=== PATIENT | female | born 1970 | race Two or more races ===

== ENCOUNTER 2016-08-29 23:53 | Emergency (ER) | payer SELFPAY ==
[2016-08-30 00:16] VITALS: RESP 18; TEMP 96.3
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
== END 2016-08-30 00:45 | disposition home or self-care (01) ==
LOC: ER 23:53
DX: S01.01XA Laceration without foreign body of scalp, initial encounter (principal); S00.03XA Contusion of scalp, initial encounter; Y04.2XXA Assault by strike against or bumped into by another person, initial encounter
CPT/HCPCS: 99282

== ENCOUNTER 2018-10-17 08:21 | Inpatient (IN) ==
[2018-10-17] MEDS ORDERED: Sodium Chloride 0.9% 1,000 ML PRIMARY IV ONE ×2 (08:34→11:52)
[2018-10-17] MEDS ORDERED: KETOROLAC 15 MG/1 ML VIAL IVP ONE (08:34)
[2018-10-17] MEDS ORDERED: ONDANSETRON 4 MG/2 ML VIAL IVP ONE (08:34)
[2018-10-17] MEDS ORDERED: ASPIRIN 81 MG (BABY) CHEWABLE TABLET PO ONE (08:37)
[2018-10-17] MEDS ORDERED: NITROGLYCERIN 0.4 MG SL TAB (BOTTLE OF 3) SL ONE (08:37)
--- NOTE | 2018-10-17 08:38 | PDOC ---
Gen Adult / Medical Screen HPI - General Chief Complaint: General Medical Stated Complaint: flu like illness Date Seen by Provider: 10/17/18 Time Seen by Provider: 08:28 Source: POSITIVE: Patient Exam Limitations: POSITIVE: No limitations Nurse's Notes Reviewed & Considered: Yes - History of Present Illness Initial Comments: This is a well-developed, well-nourished, 48-year-old female, complaining of being sick. Patient states she has a headache, sore throat, chest pain that she describes as pressure with no radiation, shortness of breath, mild cough, nausea vomiting and diarrhea, she has myalgias, no hematuria or dysuria, no rashes. She's had subjective fevers with chills and sweats. Patient's symptoms began 2 days ago and have escalated. Body Location Affected: REPORTS: Head, Chest, Abdomen Timing: REPORTS: Constant, Getting Worse Duration: >24 hours (2 days) Similar Symptoms Previously: No Recent Care Received: REPORTS: Denies Any Prior Injuries Related to Current Complaint?: No - Patient Home Medications Home Medications: Home Medications Ibuprofen 600 mg PO Q6H #30 tab 09/02/14 albuterol sulfate HFA 90 mcg/actuation aerosol inhaler 2 puff INH Q4-6H #6.7 g 08/19/17 albuterol sulfate HFA 90 mcg/actuation aerosol inhaler 2 puff INH Q4-6H PRN #1 device 07/28/18 ipratropium-albuterol 0.5 mg-3 mg(2.5 mg base)/3 mL nebulization soln 3 ml INH Q4-6H PRN #90 ml 07/28/18 mometasone-formoterol HFA 200 mcg-5 mcg/actuation aerosol inhaler 2 puff INH BID #13 g 07/28/18 - Patient Allergies Allergies/Adverse Reactions: Allergies Allergy/AdvReac Type Severity Reaction Status Date / Time No Known Drug Allergies Allergy NOT Verified 10/17/18 08:22 APPLICABLE Past Medical History - heen HEENT History: Denies History Cardiovascular History: Denies History Respiratory History: Asthma Gastrointestinal History: GERD Genitourinary History: Denies History Endocrine History: Denies History Musculoskeletal History: Denies History Prosthesis or Implant: No Additional Musculoskeletal History: RIGHT FOOT PAIN Neurological History: Motion Sickness Blood Disorders: Denies History Psychiatric History: Depression History of Sexually Transmitted Diseases: No Cancer History: Denies History History of MDRO: No History of Other Communicable Diseases: No Alcohol Use: None In the Past 12 Months, Have Used or Abuse Any Substance: None Previous Surgical History: Yes Type / Date of Surgery: EGD WITH DILATION GREATER 7 YEARS Anesthesia Reactions: No Malignant Hyperthermia: No Significant Family History: No pertinent family hx ROS - Limitations ROS Limitations: No Limitations Constitution: REPORTS: Chills, Fever, Diaphoresis Cardiovascular: REPORTS: Chest Pain Respiratory: REPORTS: Cough Non Productive, Shortness Of Breath Neurological: REPORTS: Headache Gastrointestinal: REPORTS: Abdominal Pain, Nausea, Vomitting, Diarrhea Endocrine: REPORTS: Fatigue Musculoskeletal: REPORTS: Back Pain, Muscle Aches Genitourinary: REPORTS: Denies Symptoms Eyes: REPORTS: Denies Symptoms ENT: REPORTS: Nasal Drainage, Sore Throat Skin: REPORTS: Denies Skin Symptoms Lympathic: REPORTS: Denies Lympathic Symptoms Immunologic: POSITIVE: Denies Symptoms Psychiatric: POSITIVE: Denies Psych Symptoms Gen Adult/Medical Screen Exam - General Appearance General Appearance: POSITIVE: Alert, Cooperative, No Evidence of Trauma, Moderate Distress - HEENT HEENT: POSITIVE: Head Inspection Nml, Eyes Inspection Nml, Ears Inspection Nml, Nose Inspection Nml, Oral/Dental Inspect. Nml, Pharynx Inspect. Nml, PERRL, EOMI - Pupils Pupil Size: 5 mm: Bilateral - Neck Neck: POSITIVE: Normal Inspection - Respiratory Respiratory: POSITIVE: No Respiratory Distress, Breath Sounds Normal, Chest Non- Tender - Cardiovascular Cardiovascular: POSITIVE: Regular Rate & Rhythm, No Murmur, No Gallop, PMI No rmal Peripheral Pulses: Radial (R): 4+ - Abdomen Abdomen: Soft: (All Quadrants), Normal Bowel Sounds: (All Quadrants), No Splenomegaly: (All Quadrants), No Hepatomegaly: (All Quadrants), No Guarding: (All Quadrants), No Rebound: (All Quadrants), No Palpable Pulse: (All Quadrants), No Palpabale Mass: (All Quadrants), No Rigidity: (All Quadrants), Tenderness Noted: (All Quadrants), Distention: (All Quadrants) - Back Back: POSITIVE: Normal Inspection - Neurological / Psychological Mental Status: POSITIVE: Mood Normal, Affect Normal Orientation: POSITIVE: Oriented x 3 - Skin Skin: POSITIVE: Normal Color, Warm, Dry, No Rash - Extremities Extremity: Non-Tender: (All Extremities), Normal ROM: (All Extremities), Normal Inspection: (All Extremities), Pelvis Stable: (All Extremities) Procedures - Laceration/Wound Repair Did patient have a laceration repair: No Gen Adlt/Medical Scrn Progress - Results Reviewed by me Xrays/CTs/US Reviewed by me: No Discussed with Radiologist: No Lab Results Reviewed by Me: No - Patient's Progress Pain Medication Addressed: POSITIVE: Yes Re-Examine Time: 09:06 Status: POSITIVE: Improved MDM / ED Course: Patient was evaluated, an IV started, blood drawn and sent to the lab for studies, radiologic and EKG studies were also ordered. Patient received a liter of normal saline, Toradol, Zofran. The end of my shift is occurred and I have turned over care to Dr. Micky Kraus. For elucidation of laboratory, radiologic findings, assessment and plan please see his dictation. Patient Care Time - Estimated PCT Patient Care Time (In Minutes): 20 Vital Signs - VS Reviewed Vital Signs Reviewed: Yes Discharge Clinical Impression: Fever, Abdominal pain, Chest pain Condition: Stable Follow Up With: NONE,NONE [Primary Care Provider] -
--- NOTE | 2018-10-17 08:46 | EKG ---
[address] [address] Measurements Intervals [place] Rate: 64 P: 43 MD: 153 QRS: 50 QRSD: 113 T: 67 QT: 409 QTc: 418 Interpretive Statements SINUS RHYTHM MODERATE INTRAVENTRICULAR CONDUCTION DELAY [110+ ms QRS DURATION] No previous ECG available for comparison Electronically Signed On 10-17-18 11:16:14 MST by Leo Leone [email or web address]
[2018-10-17 09:09] LABS: VENOUS PH 7.43 (7.32-7.42)
[2018-10-17 09:29] LABS: BASOPHILS # (AUTO) 0.01 10*3/UL; BASOPHILS % (AUTO) 0.1 % (0-1); EOSINOPHILS # (AUTO) 0.11 10*3/UL; EOSINOPHILS % (AUTO) 1.4 % (0-8); Hematocrit [HCT] 37.5 % (37.0-47.0); LYMPHOCYTES # (AUTO) 0.89 10*3/uL; MEAN CORPUSCULAR HEMOGLOBIN 25.6 PG (27-31); MEAN PLATELET VOLUME 9.2 FL (7.4-12.2); MONOCYTES # (AUTO) 0.38 10*3/UL (0.3-0.8); MONOCYTES % (AUTO) 4.9 % (5-15); NEUTROPHILS # (AUTO) 6.34 10*3/UL; RED BLOOD COUNT 4.69 10^6/uL (4.20-5.40)
[2018-10-17 09:38] LABS: BLOOD UREA NITROGEN 13 mg/dL (7-22); BUN/CREATININE RATIO 18.57 (6-20); LIPASE 64 IU/L (23-300); SERUM ALBUMIN 4.4 g/dL (3.5-4.8)
[2018-10-17 09:43] LABS: PLATELET MORPHOLOGY COMMENT NORMAL MORPHOLOGY (NORM); RBC MORPHOLOGY COMMENT NORMAL MORPHOLOGY (NORM); WBC MORPHOLOGY COMMENT NORMAL MORPHOLOGY (NORM)
[2018-10-17] MEDS ORDERED: Acetaminophen 1000mg Inj 1,000 MG/100 ML VIAL IV PRN (09:51)
[2018-10-17] MEDS ORDERED: FAMOTIDINE 20 MG/2 ML VIAL IVP ONE (09:51)
--- NOTE | 2018-10-17 10:21 | DI ---
AP CHEST X-RAY, 10/17/2018 8:34 AM : Clinical History: Fever. Chest pain. Shortness of breath. Previous Exam: None at this facility. Soft Tissues: No acute soft tissue abnormality. Bones: Normal. Heart: Normal heart. Lungs: No infiltrates. Effusion(s): None. Mediastinum: Normal mediastinum. Nodules: No pulmonary nodules. Additional Findings: The stomach is markedly distended with gas. Gas is also present in the small bow el loops without evidence of an obstruction. Reading: Normal chest x-ray. Marked gaseous distention of the stomach.
--- NOTE | 2018-10-17 10:58 | PDOC ---
Transfer of Care - Care Accepted Time Care Transferred: 09:00 Report from Transferring Physician Received: Yes (Dr. Lainez) MDM / ED Course: The patient is a 48-year-old female who presents to the emergency department with multiple complaints. She was initially evaluated per Dr. Lainez. She reports that sometime yesterday she had onset of nausea and upset stomach. She states that she feels bloated and has been belching. She states that when she belches there is a distinct sulfur smell. She states that she did have some diarrhea as well yesterday and now has mostly just been passing gas. She continues to feel bloated and has some generalized abdominal pain. She also has some pain that radiates up into her chest with some associated chest tightness. She does have fevers and chills as well as general malaise. EKG done shortly after arrival shows normal sinus rhythm with no acute findings. Chest x-ray, chest CT, abdominal CT and labs have been ordered and are pending. The patient denies any prior history of abdominal surgery or history of ulcers. She does have significant heartburn and does take Prilosec routinely. She states that her heartburn has been fairly bad recently. She denies any significant alcohol consumption and denies caffeine consumption. She has not taken any recent [id number] NSAIDs. She is normally healthy. Home Medications: Home Medications Ibuprofen 600 mg PO Q6H #30 tab 09/02/14 albuterol sulfate HFA 90 mcg/actuation aerosol inhaler 2 puff INH Q4-6H #6.7 g 08/19/17 albuterol sulfate HFA 90 mcg/actuation aerosol inhaler 2 puff INH Q4-6H PRN #1 device 07/28/18 ipratropium-albuterol 0.5 mg-3 mg(2.5 mg base)/3 mL nebulization soln 3 ml INH Q4-6H PRN #90 ml 07/28/18 mometasone-formoterol HFA 200 mcg-5 mcg/actuation aerosol inhaler 2 puff INH BID #13 g 07/28/18 Allergies/Adverse Reactions: Allergies No Known Drug Allergies Allergy (Verified 10/17/18 08:22) NOT APPLICABLE Vital Signs Reviewed: Yes Nurse's Notes Reviewed & Considered: Yes - Pending Patient Care Items Pending Patient Care Items: POSITIVE: Labs, X-ray Results, CT / MRI Results - Re-Evaluation of Patient Disposition of Patient: POSITIVE: Admitted Counseled: POSITIVE: Patient, RE: Lab Results, RE: Radiology Results, RE: DX, RE: Need for F/U Pending Test Results Documented: Yes Clinical Impression Documented: Yes - Results Reviewed Lab Results Reviewed by Me: Yes Lab Results: Laboratory Results 10/17/18 10/17/18 10/17/18 08:50 08:55 08:55 WBC 7.74 RBC 4.69 Hgb 12.0 Hct 37.5 MCV 80.0 L MCH 25.6 L MCHC 32.0 L RDW Std Deviation 42.9 RDW Coeff of David 14.9 H Plt Count 475 H MPV 9.2 Immature Gran % (Auto) 0.1 Neut % (Auto) 82.0 H Lymph % (Auto) 11.5 [place] % (Auto) 4.9 L Eos % (Auto) 1.4 Baso % (Auto) 0.1 Immature Gran # (Auto) 0.01 Neut # (Auto) 6.34 Lymph # (Auto) 0.89 [place] # (Auto) 0.38 Eos # (Auto) 0.11 Baso # (Auto) 0.01 WBC Morphology Comment Normal morphology Plt Morphology Comment Normal morphology RBC Morph Comment Normal morphology PT 10.2 INR 1.00 D-Dimer 0.30 VBG pH VBG pCO2 VBG HCO3 VBG Base Excess Sodium Potassium Chloride Carbon Dioxide Anion Gap BUN Creatinine Estimated GFR BUN/Creatinine Ratio Glucose Calculated Osmolality Lactic Acid Calcium Magnesium Total Bilirubin AST ALT Alkaline Phosphatase CK-MB (CK-2) Troponin I Handheld C-Reactive Protein NT-Pro-B Natriuret Pep Total Protein Albumin Globulin Albumin/Globulin Ratio Amylase Lipase TSH Group A Strep Screen Negative 10/17/18 10/17/18 10/17/18 08:55 08:55 08:55 WBC RBC Hgb Hct MCV MCH MCHC RDW Std Deviation RDW Coeff of David Plt Count MPV Immature Gran % (Auto) Neut % (Auto) Lymph % (Auto) [place] % (Auto) Eos % (Auto) Baso % (Auto) Immature Gran # (Auto) Neut # (Auto) Lymph # (Auto) [place] # (Auto) Eos # (Auto) Baso # (Auto) WBC Morphology Comment Plt Morphology Comment RBC Morph Comment PT INR D-Dimer VBG pH VBG pCO2 VBG HCO3 VBG Base Excess Sodium 137 Potassium 3.4 L Chloride 106 Carbon Dioxide 21 L Anion Gap 10 BUN 13 Creatinine 0.7 Estimated GFR > 60 BUN/Creatinine Ratio 18.57 Glucose 122 H Calculated Osmolality 284.0 Lactic Acid Calcium 10.0 Magnesium 1.8 Total Bilirubin 0.5 AST 19 ALT 23 Alkaline Phosphatase 85 CK-MB (CK-2) 0.78 Troponin I Handheld 0.000 C-Reactive Protein 1.2 H NT-Pro-B Natriuret Pep 23.3 Total Protein 7.3 Albumin 4.4 Globulin 2.9 Albumin/Globulin Ratio 1.50 Amylase 63 Lipase 64 TSH 1.11 Group A Strep Screen 10/17/18 10/17/18 08:55 09:04 WBC RBC Hgb Hct MCV MCH MCHC RDW Std Deviation RDW Coeff of David Plt Count MPV Immature Gran % (Auto) Neut % (Auto) Lymph % (Auto) [place] % (Auto) Eos % (Auto) Baso % (Auto) Immature Gran # (Auto) Neut # (Auto) Lymph # (Auto) [place] # (Auto) Eos # (Auto) Baso # (Auto) WBC Morphology Comment Plt Morphology Comment RBC Morph Comment PT INR D-Dimer VBG pH 7.43 H VBG pCO2 30 L VBG HCO3 20 L VBG Base Excess -5 L Sodium Potassium Chloride Carbon Dioxide Anion Gap BUN Creatinine Estimated GFR BUN/Creatinine Ratio Glucose Calculated Osmolality Lactic Acid 1.1 Calcium Magnesium Total Bilirubin AST ALT Alkaline Phosphatase CK-MB (CK-2) Troponin I Handheld C-Reactive Protein NT-Pro-B Natriuret Pep Total Protein Albumin Globulin Albumin/Globulin Ratio Amylase Lipase TSH Group A Strep Screen EKG Interpreted/Reviewed By Me:: Yes EKG Interpretation:: POSITIVE: Normal Sinus Rhythm, Normal Rate, Normal QRS, Normal ST/T - Consult Consult (If Yes, Name of Consulting MD & Time Called): Yes (Dr. Alvarado) Recommendations:: Her EKG done shortly after arrival shows normal sinus rhythm with no acute ST segment or T-wave changes. Chest x-ray shows no acute cardiopulmonary findings, there is some evidence of a distended stomach on x-ray. Her initial venous blood gas reveals a pH of 7.43 with a PCO2 of 30. Her blood work is essentially unremarkable with a white count of 7 and a CRP of 1.2. Her lactate is 1.1. Liver enzymes, amylase and lipase were within normal limits. Her potassium was slightly low at 3.4. When I reevaluated the patient she was still having some continued abdominal discomfort. She was given Pepcid 20 mg IV as well as Tylenol 1 g IV. Her respiratory viral fire came back negative for any pathogens. Strep screen was negative. The patient had continued nausea and was given Compazine 5 mg IV. She underwent CT scan of the abdomen and pelvis as well as CT of the chest. The CT of the chest was unremarkable, CT of the abdomen and pelvis showed dilated stomach with no other acute findings per radiologist. On reevaluation after CT the patient was still complaining of epigastric discomfort. She did receive Protonix 40 mg IV and fentanyl 25 g IV. All of the above findings were discussed with the patient and her friend. The patient still feels miserable. At this point the exact etiology of her pain is unclear however might be caused by gastritis/ulcer or gastroenteritis with associated ileus. I did discuss the patient with Dr. Alvarado and he has agreed to admit the patient for further evaluation and care. Holding orders will be written. Patient Care Time - Estimated PCT Patient Care Time (In Minutes): 35 Vital Signs - Recent Vital Signs Vital Signs: Vital Signs (Last 8 hours) Temp Pulse Resp BP Pulse Ox 10/17/18 09:29 96.7 F L 65 22 114/74 99 - VS Reviewed Vital Signs Reviewed: Yes Discharge Clinical Impression: Fever, Abdominal pain, Chest pain, Gastroenteritis Discharge Disposition: Admit to Inpatient Condition: Stable Follow Up With: NONE,NONE [Primary Care Provider] - Date Decision to Admit to Inpatient: 10/17/18 Time Decision to Admit to Inpatient: 12:00
[2018-10-17] MEDS ORDERED: Prochlorperazine Edisylate Inj 10mg/2ml vial IVP ONE (11:13)
--- NOTE | 2018-10-17 11:14 | DI ---
CT ANGIOGRAM OF THE CHEST, 10/17/2018 8:34 AM : Clinical History: Chest pain. Shortness of breath. Fever. Previous Exam: None at this facility. Technique: Scans from base of neck to lung bases with IV contrast. Bolus tracking protocol was used f or timing the injection. Non-MIPS and MIPS sagittal/coronal images generated. IV Contrast: 75 mL of Isovue 300. Base of Neck: Normal. Nodes: Normal axillary, supraclavicular, mediastinal, and hilar lymph nodes. Heart: Normal. No coronary artery calcifications. Aorta: Normal thoracic aorta. No aneurysm or dissection. Pulmonary Arteries: Normal. No pulmonary emboli or infarcts; no pulmonary hypertension. Lungs: No infiltrates. Effusion(s): None. Nodules: None. Bony Structures: Normal visualized portions of ribs, sternum, scapulae, clavicles, and shoulders. Nor mal visualized portions of thoracic spine. Limited Upper Abdomen: Normal adrenal glands and spleen. Normal limited views of liver and pancreas. READIN. Normal CTA of the chest. There are no pulmonary emboli or pulmonary infarcts. 2. No pneumonia present to explain the patient's fever.
--- NOTE | 2018-10-17 11:35 | DI ---
CT ABDOMEN SCAN WITH IV CONTRAST, 10/17/2018 8:34 AM : Clinical History: Abdominal pain. Vomiting. Diarrhea. Previous Exam: None at this facility. IV Contrast: Same bolus of contrast used for the CT angiogram of the chest. Oral Contrast: No oral contrast ordered. Rectal Contrast: No rectal contrast ordered. Lungs: No infiltrate or effusion. Liver: Normal. Gallbladder: Grossly normal. Stomach and Duodenum and Jejunum: Stomach is dilated and filled with liquid material. The antrum and region of the pylorus show no evidence of an obvious ulcer crater or perforation. The duodenum and je junum are normal. Adrenal Glands: Normal. Spleen: Normal. Pancreas: Normal. Kidneys: Normal size, shape, position and contour. No hydronephrosis or hydroureter. No renal or uret eral calculi. Masses: None. Lymph Nodes: Normal. Ascites: No ascites. Free Air: None. Spine: Normal lower thoracic and lumbar spine. READIN. The stomach is distended with gas and fluid but no definite gastric outlet obstructive mass is id entified. There is no free air. 2. The remainder of the examination is normal. CT PELVIS SCAN WITH IV CONTRAST, 10/17/2018 8:34 AM: Clinical History: See above. Previous Exam: None at this facility. Contrast: Same bolus used for CT scans of the abdomen. Masses: No masses or enhancing lesions. Ascites: None. Free Air: None. Lymph Nodes: No adenopathy. Appendix: Normal. Small Bowel: Normal small bowel, terminal ileum, and ileocecal valve. Colon: Normal. No evidence of colitis or diverticulitis. Bladder: Normal. Uterus: Atrophic but normal. Ovaries: Atrophic but normal. Hernias: There is a small umbilical hernia through which only mesenteric fat has herniated. Bony Pelvis: Normal sacrum, pelvic bones, and hips. READING: Normal CT scan of the pelvis with IV contrast. No evidence of colitis or diverticulitis.
[2018-10-17] MEDS ORDERED: PANTOPRAZOLE IV 40 MG VIAL IVP ONE (11:42)
[2018-10-17] MEDS ORDERED: fentaNYL Inj 100 MCG/2 ML VIAL IVP ONE (11:42)
[2018-10-17] MEDS: Sodium Chloride 0.9% 1,000 ML PRIMARY IV SCH ×2 (14:03→21:46)
[2018-10-17] MEDS: MORPHINE SULFATE 2 MG/1 ML IVP PRN ×5 (14:03→21:42)
[2018-10-17] MEDS: ONDANSETRON 4 MG/2 ML VIAL IVP PRN ×3 (14:04→21:42)
[2018-10-17] MEDS ORDERED: ALBUTEROL SULFATE 8.5 GM HFA INHALER INH PRN (15:03)
[2018-10-17] MEDS ORDERED: FLUTICASONE/SALMETEROL 100/50 UD INHALER INH ONE (15:04)
--- NOTE | 2018-10-17 15:45 | DI ---
AP CHEST X-RAY, 10/17/2018 3:27 PM : Clinical History: Verification of NG tube placement. Previous Exam: 10/17/2018 at 0915 hours. Soft Tissues: No acute soft tissue abnormality. Bones: Normal. Heart: Normal heart. Lungs: No infiltrates. Effusion(s): None. Mediastinum: Normal mediastinum. The nasogastric tube is in the fundus of the stomach. The stomach has been decompressed. . Reading: Normal chest x-ray. The nasogastric tube is in the fundus of the stomach.
[2018-10-18 00:21] LABS: BILIRUBIN,URINE NEGATIVE (NEG); CLARITY,URINE CLEAR (CLEAR); COLOR,URINE YELLOW (Y); GLUCOSE, URINE (UA) NEGATIVE (NEG); OCCULT BLOOD,URINE NEGATIVE (NEG); PH,URINE 5.5 (5.0-8.5); PROTEIN,URINE NEGATIVE (NEG); UROBILINOGEN,URINE 0.2 EU/dL (0.2)
[2018-10-18 00:25] LABS: URINE SAMPLE TYPE CLEAN CATCH URINE
[2018-10-18] MEDS: MORPHINE SULFATE 2 MG/1 ML IVP PRN ×3 (00:25→09:06)
[2018-10-18 00:34] LABS: AMPHETAMINE SCREEN POSITIVE (NEG); CANNABINOID SCREEN,URINE POSITIVE (NEG); COCAINE SCREEN NEGATIVE (NEG); METHADONE URINE SCREEN NEGATIVE (NEG); METHAMPHETAMINES SCREEN,URINE POSITIVE (NEG); OPIATE SCREEN,URINE POSITIVE (NEG); URINE SAMPLE TYPE CLEAN CATCH URINE; URINE SPECIFIC GRAVITY - MAN 1.015
[2018-10-18 05:33] LABS: BLOOD UREA NITROGEN 5 mg/dL (7-22); BUN/CREATININE RATIO 8.33 (6-20); LIPASE 122 IU/L (23-300); SERUM ALBUMIN 3.2 g/dL (3.5-4.8)
[2018-10-18] MEDS: Sodium Chloride 0.9% 1,000 ML PRIMARY IV SCH (06:44)
[2018-10-18] MEDS: ONDANSETRON 4 MG/2 ML VIAL IVP PRN (07:44)
--- NOTE | 2018-10-18 08:54 | DI ---
EXAM: US Abdomen Complete CLINICAL HISTORY: Its. reason Nausea and vomiting. Assess for gallbladder disease Physician Notes: Tech Comments: TECHNIQUE: Real-time ultrasound of the abdomen (complete) with image documentation. COMPARISON: No relevant prior studies available. FINDINGS: Liver: Liver measures 14.6 cm. No intrahepatic ductal dilatation. Gallbladder: No cholelithiasis. Gallbladder wall measures 1 mm. No pericholecystic fluid. Common bile duct: Common bile duct measures 5 mm. Pancreas: Tail the pancreas is obscured by overlying bowel gas. Visualized portion of the pancreas appear within normal limits. Kidneys: Right kidney measures 9 cm. Inferior aspect of the right kidney partly obscured by adjacent bowel gas. No stones. No hydronephrosis. Spleen: Unremarkable. No splenomegaly. Aorta: Proximal aorta measures 2 cm. Mid aorta measures 1.7 cm. Distal aorta is ectatic and measures 2.1 cm. No aneurysm. Inferior vena cava: Unremarkable. Free fluid: No free fluid in the right upper quadrant. IMPRESSION: No cholelithiasis. No ductal dilatation. No free fluid
[2018-10-18 09:06] VITALS: O2SAT 97
[2018-10-18] MEDS ORDERED: Ondansetron ODT Tab 4 MG TAB PO PRN (11:39)
[2018-10-18] MEDS ORDERED: ACETAMINOPHEN WITH CODEINE 300 MG/30 MG TABLET PO PRN (11:40)
--- NOTE | 2018-10-18 12:27 | DI ---
KUB and UPRIGHT ABDOMEN, 10/18/2018 11:40 AM: Clinical History: Abdominal distention. Previous Exam: None at this facility. Soft Tissues: Normal. Bowel Pattern: Normal bowel gas pattern, psoas margins, and flank stripes. The colon is gas-filled bu t has a normal caliber throughout. Free Air: None. Ascites: None. Radiodensities: No abnormal radiodensities. Bones: Normal. Additional Findings: Minimal left lower lobe atelectasis. Reading: Normal KUB and upright exam.
[2018-10-18 13:04] VITALS: BP 132/78; RESP 16; TEMP 97.4
== END 2018-10-18 15:18 | disposition home or self-care (01) | DRG 392 ==
LOC: ER 08:21 → MED/SURG 12:52
PROVIDERS: ADMIT Surgery; ATTEND Surgery